=== PATIENT | male | born 1955 | race Caucasian/White ===

== ENCOUNTER 2023-07-25 09:37 | Emergency (ER) | payer OTHER, MEDICARE ==
[2023-07-25] MEDS ORDERED: Bacitracin 1 PK ONE (10:49)
== END 2023-07-25 11:12 | disposition home or self-care (01) ==
LOC: BURERS 09:37
DX: S61.451A Open bite of right hand, initial encounter (principal); S61.452A Open bite of left hand, initial encounter; S51.852A Open bite of left forearm, initial encounter; S51.851A Open bite of right forearm, initial encounter; I10 Essential (primary) hypertension; E11.9 Type 2 diabetes mellitus without complications; Z87.891 Personal history of nicotine dependence; W54.0XXA Bitten by dog, initial encounter